=== PATIENT | male | born 1945 | race Caucasian/White ===

== ENCOUNTER 2019-05-14 17:44 | Emergency (ER) | payer MEDICARE ==
[2019-05-14 17:57] VITALS: TEMP 98.2
[2019-05-14] MEDS ORDERED: SODIUM CHLORIDE 0.9% 1,000 ML IV STA ×2 (18:24)
--- NOTE | 2019-05-14 18:46 | ED ---
Neuro HPI - General Chief Complaint: Neuro Symptoms/Deficit Stated Complaint: vision problems, headache Time Seen by Provider: 05/14/19 18:06 Source: patient, RN notes reviewed, old records reviewed Mode of arrival: ambulatory Limitations: no limitations - History of Present Illness Is the patient presenting with stroke symptoms?: No Last Known Well Date: 05/13/19 Initial Comments: Patient is a 73-year-old male presents emergency Department today with complaints of visual changes over his right lateral vision. Patient reports that he noticed yesterday when he was watching somebody walk outside he could see the person walking to dogs and conceded to dogs but could not see the person in his field of vision. Patient reports that he has had a history of TIAs in the past. Patient states he does have a mild headache at this time. Patient reports that he has had a history of diabetes and hypertension, he reports though he spitted generally working in his health and exercising frequently. Patient states that he has no other neurological deficits or complaints. He does wear glasses. - Related Data Home Medications: Home Medications Medication Instructions Recorded Confirmed Fenofibrate [Lofibra] 160 mg PO DAILY 09/08/15 09/08/15 Omeprazole [PriLOSEC] 20 mg PO AC-BRKFST 09/08/15 09/08/15 Previous Rx's Medication Instructions Recorded Aspirin 81 mg PO DAILY #30 chewable 09/09/15 Fenofibrate [Lofibra] 160 mg PO DAILY #30 tab 09/09/15 Glimepiride [Amaryl] 4 mg PO BID #60 tab 09/09/15 Omeprazole [PriLOSEC] 20 mg PO AC-BRKFST #14 09/09/15 metFORMIN HCL [metFORMIN HCL ER] 1,000 mg PO BID #60 09/09/15 Allergies/Adverse Reactions: Allergies Allergy/AdvReac Type Severity Reaction Status Date / Time No Known Allergies Allergy Verified 05/14/19 17:57 Review of Systems ROS Statement: Those systems with pertinent positive or pertinent negative responses have been documented in the HPI. ROS Other: All systems not noted in ROS Statement are negative. General Exam - General Exam Comments Initial Comments: 73-year-old male. Alert and oriented. No significant distress. Limitations: no limitations General appearance: alert, in no apparent distress Head exam: Present: atraumatic, normocephalic, normal inspection Eye exam: Present: normal appearance, PERRL, EOMI. Absent: scleral icterus, conjunctival injection, periorbital swelling ENT exam: Present: normal exam, mucous membranes moist, other (Pressure over the right eye is 16, left is 13. Patient ophthalmic exam was performed and shows no sign of retinal attachment at this time.) Neck exam: Present: normal inspection. Absent: tenderness, meningismus, lymphadenopathy Respiratory exam: Present: normal lung sounds bilaterally. Absent: respiratory distress, wheezes, rales, rhonchi, stridor Cardiovascular Exam: Present: regular rate, normal rhythm, normal heart sounds. Absent: systolic murmur, diastolic murmur, rubs, gallop, clicks GI/Abdominal exam: Present: soft, normal bowel sounds. Absent: distended, tenderness, guarding, rebound, rigid Extremities exam: Present: normal inspection, full ROM, normal capillary refill. Absent: tenderness, pedal edema, joint swelling, calf tenderness Back exam: Present: normal inspection Neurological exam: Present: alert, oriented X3, CN II-XII intact Psychiatric exam: Present: normal affect, normal mood Skin exam: Present: warm, dry, intact, normal color. Absent: rash Stroke MDM - Lab Data Result diagrams: 05/14/19 18:55 05/14/19 18:55 Lab Results 05/14/19 05/14/19 05/14/19 Range/Units 18:55 18:55 18:55 WBC 9.5 (3.8-10.6) k/uL RBC 4.92 (4.30-5.90) m/uL Hgb 14.6 (13.0-17.5) gm/dL Hct 45.5 (39.0-53.0) % MCV 92.5 (80.0-100.0) fL MCH 29.6 (25.0-35.0) pg MCHC 32.0 (31.0-37.0) g/dL RDW 14.7 (11.5-15.5) % Plt Count 280 (150-450) k/uL Neutrophils % 55 % Lymphocytes % 34 % Monocytes % 4 % Eosinophils % 5 % Basophils % 1 % Neutrophils # 5.2 (1.3-7.7) k/uL Lymphocytes # 3.2 (1.0-4.8) k/uL Monocytes # 0.4 (0-1.0) k/uL Eosinophils # 0.5 (0-0.7) k/uL Basophils # 0.1 (0-0.2) k/uL PT 10.0 (9.0-12.0) sec INR 0.9 (<1.2) APTT 24.7 (22.0-30.0) sec Sodium 144 (137-145) mmol/L Potassium 4.2 (3.5-5.1) mmol/L Chloride 109 H (98-107) mmol/L Carbon Dioxide 26 (22-30) mmol/L Anion Gap 9 mmol/L BUN 20 (9-20) mg/dL Creatinine 0.94 (0.66-1.25) mg/dL Est GFR (CKD-EPI)AfAm >90 (>60 ml/min/1.73 sqM) Est GFR (CKD-EPI)NonAf 81 (>60 ml/min/1.73 sqM) Glucose 86 (74-99) mg/dL Calcium 10.9 H (8.4-10.2) mg/dL Total Bilirubin 0.3 (0.2-1.3) mg/dL AST 19 (17-59) U/L ALT 26 (21-72) U/L Alkaline Phosphatase 55 (38-126) U/L Troponin I (0.000-0.034) ng/mL Total Protein 7.2 (6.3-8.2) g/dL Albumin 4.5 (3.5-5.0) g/dL 05/14/19 Range/Units 18:55 WBC (3.8-10.6) k/uL RBC (4.30-5.90) m/uL Hgb (13.0-17.5) gm/dL Hct (39.0-53.0) % MCV (80.0-100.0) fL MCH (25.0-35.0) pg MCHC (31.0-37.0) g/dL RDW (11.5-15.5) % Plt Count (150-450) k/uL Neutrophils % % Lymphocytes % % Monocytes % % Eosinophils % % Basophils % % Neutrophils # (1.3-7.7) k/uL Lymphocytes # (1.0-4.8) k/uL Monocytes # (0-1.0) k/uL Eosinophils # (0-0.7) k/uL Basophils # (0-0.2) k/uL PT (9.0-12.0) sec INR (<1.2) APTT (22.0-30.0) sec Sodium (137-145) mmol/L Potassium (3.5-5.1) mmol/L Chloride (98-107) mmol/L Carbon Dioxide (22-30) mmol/L Anion Gap mmol/L BUN (9-20) mg/dL Creatinine (0.66-1.25) mg/dL Est GFR (CKD-EPI)AfAm (>60 ml/min/1.73 sqM) Est GFR (CKD-EPI)NonAf (>60 ml/min/1.73 sqM) Glucose (74-99) mg/dL Calcium (8.4-10.2) mg/dL Total Bilirubin (0.2-1.3) mg/dL AST (17-59) U/L ALT (21-72) U/L Alkaline Phosphatase (38-126) U/L Troponin I <0.012 (0.000-0.034) ng/mL Total Protein (6.3-8.2) g/dL Albumin (3.5-5.0) g/dL - NIH Stroke Scale 1a. Level of Consciousness: (0) alert 1b. LOC Questions: (0) answers correctly 1c. LOC Commands: (0) performs tasks correctly 2. Best Gaze: (0) normal 3. Visual: (1) partial hemianopia 4. Facial Palsy: (0) normal symmetrical movement 5a. Motor Arm Left: (0) no drift 5b. Motor Arm Right: (0) no drift 6a. Motor Leg Left: (0) no drift 6b. Motor Leg Right: (0) no drift 7. Limb Ataxia: (0) absent 8. Sensory: (0) normal 9. Best Language: (0) no aphasia 10. Dysarthria: (0) normal 11. Extinction/Inattention: (0) no abnormality NIH Score total: 1 (patient reports an area of hazy vision on R eye at 9 oclock on lateral position. ) - Medical Decision Making 73 year old male presents with visual field disturbance for 24 hours on his right periphery. PAtient complains of mild headache, history of TIA and DM. No other neurological deficist. PAtient EKG was normal rhythm. Labs are normal. 20/20 with vision with glasses in both eyes. Denies eye pain. At this time pressures are WNL as well. CT brain angio was negative for acute stroke or hemorrhage. PAtient case discused with dr. Neri. I discussed with Dr. marina as well. Requests patient to go to his office in morning for eye exam. Discussed wiht patient and he is agreeable to this. I belive with no other neuroloical findings and discription of patient visual change that this is related to retina. Discussed retina detachement intructions. My personal opthalmic exam shows no sign of retinal detachement. PAtient is stable for DC but discussed if other deficts to return. - Radiology Data Negative CT angio of the brain, and neck. No evidence of hemodynamic stenosis. Dimminutive vertebrobasilar artery system with flow seen in posterior communication artery filling posterior cerebral arteries. There is noted enlarged sella turcica with large empty sella not changes from old CT of 2014. - EKG Data -: EKG Interpreted by Me 05/14/19 19:23 EKG performed at 1845 shows sinus rhytm. Minimal voltage criteria for LVH may be normal variant. Borderline EKG. Ventricular rate of 60 bpm. Pulse 186 most seconds. She hindu is 88 ms. QT QTc is 414 ms. Past Medical History Past Medical History: CVA/TIA, Diabetes Mellitus, GERD/Reflux, Hyperlipidemia Additional Past Medical History / Comment(s): enlarged pituitary gland History of Any Multi-Drug Resistant Organisms: None Reported Past Surgical History: Cholecystectomy Past Anesthesia/Blood Transfusion Reactions: No Reported Reaction Past Psychological History: No Psychological Hx Reported Smoking Status: Never smoker Past Alcohol Use History: None Reported Past Drug Use History: None Reported - Past Family History Father Family Medical History: Congestive Heart Failure (CHF), Diabetes Mellitus Additional Family Medical History / Comment(s): smoker/drinker CABG Mother Family Medical History: Syncope Additional Family Medical History / Comment(s): Bilat hip replacements Course Vital Signs 05/14/19 05/14/19 05/14/19 17:55 19:00 20:00 Temperature 98.2 F Pulse Rate 69 58 L 54 L Respiratory 20 18 20 Rate Blood Pressure 171/65 146/63 146/83 O2 Sat by Pulse 98 99 99 Oximetry 05/14/19 21:00 Temperature Pulse Rate 55 L Respiratory 18 Rate Blood Pressure 139/66 O2 Sat by Pulse 99 Oximetry Disposition Clinical Impression: Visual changes Disposition: HOME SELF-CARE Condition: Good Instructions (If sedation given, give patient instructions): Blurred Vision (ED) Additional Instructions: Follow-up with Dr. Ocampo tomorrow at 7:45 AM. Patient should sleep with head of the bed up. Return to the emergency department if any alarming signs or symptoms occur. Is patient prescribed a controlled substance at d/c from ED?: No Referrals: Jennifer Burciaga MD [Primary Care Provider] - 1-2 days Rosa Marina MD [STAFF PHYSICIAN] - 1-2 days Time of Disposition: 21:22
[2019-05-14 19:11] LABS: Basophils # (A) 0.1 k/uL (0-0.2); Basophils % (A) 1 %; Eosinophils # (A) 0.5 k/uL (0-0.7); Eosinophils % (A) 5 %; HCT 45.5 % (39.0-53.0); HGB 14.6 gm/dL (13.0-17.5); Lymphocytes # (A) 3.2 k/uL (1.0-4.8); Lymphocytes % (A) 34 %; MCH 29.6 pg (25.0-35.0); MCV 92.5 fL (80.0-100.0); Mean Platelet Volume 8.6; Monocytes # (A) 0.4 k/uL (0-1.0); Monocytes % (A) 4 %; Neutrophils # (A) 5.2 k/uL (1.3-7.7); Neutrophils % (A) 55 %; Platelet Count 280 k/uL (150-450); RBC 4.92 m/uL (4.30-5.90); RDW 14.7 % (11.5-15.5); WBC 9.5 k/uL (3.8-10.6)
[2019-05-14 19:20] LABS: INR 0.9 (<1.2); Partial Thromboplastin Time 24.7 sec (22.0-30.0)
[2019-05-14 19:22] LABS: ALT 26 U/L (21-72); AST 19 U/L (17-59); African American GFR (CKD) >90 (>60 ml/min/1.73 sqM); Albumin 4.5 g/dL (3.5-5.0); Alkaline Phosphatase 55 U/L (38-126); Anion Gap 9 mmol/L; Blood Urea Nitrogen 20 mg/dL (9-20); Calcium 10.9 mg/dL (8.4-10.2); Carbon Dioxide 26 mmol/L (22-30); Chloride 109 mmol/L (98-107); Glucose 86 mg/dL (74-99); Potassium 4.2 mmol/L (3.5-5.1); Sodium 144 mmol/L (137-145); Total Bilirubin 0.3 mg/dL (0.2-1.3); Total Protein 7.2 g/dL (6.3-8.2)
--- NOTE | 2019-05-14 19:26 | XR ---
EXAMINATION TYPE: XR chest 2V DATE OF EXAM: 05/14/2019 COMPARISON: 09/08/2015 HISTORY: Headache TECHNIQUE: Frontal and lateral views of the chest are obtained. FINDINGS: Heart is normal. There is calcified granulomata at the left pulmonary hilum. Lungs are hesham ar of infiltrate. There is no pleural effusion. Bony thorax is intact. There are chest leads. IMPRESSION: No active cardiopulmonary disease. Normal heart. Old granulomatous disease. No change.
--- NOTE | 2019-05-14 20:14 | CT ---
EXAMINATION TYPE: CT angio head neck DATE OF EXAM: 05/14/2019 HISTORY: Neuro deficits. COMPARISON: CT brain 09/08/2015 CT DLP: 1492.3 mGycm. Automated Exposure Control for Dose Reduction was Utilized. TECHNIQUE: CTA scan of the neck and brain is performed with IV Contrast, patient injected with 50ml mL of Isovue 370, axial images are obtained, coronal and sagittal reformatted images are reviewed. Th ree-D reconstructed images are created on an independent workstation and reviewed. FINDINGS: The noncontrast images show some cerebral cortical atrophy. There is no mass effect nor midline shift . There is no sign of intracranial hemorrhage. There is normal branching pattern of the great vessels on the aortic arch. There is bilateral arteria l flow in the subclavian arteries. There is patency of the common internal and external carotid arter ies bilaterally. There is fairly wide patency of the carotid artery bifurcations. There is no evidenc e of any significant stenosis. There is arterial flow in both vertebral arteries. There is no evidenc e of carotid or vertebral artery aneurysm or dissection. Right distal vertebral artery is diminutive. There is diminutive basilar artery. There is arterial flow in the anterior middle and posterior cerebral arteries. There is no evidence o f aneurysm or neovascularity. There is no mass effect. There is normal contrast opacification of the venous sinuses. There is no evidence of intracranial arterial stenosis. IMPRESSION: Negative CT angiogram of the brain. Negative CT angiogram of the neck. No evidence of hemodynamic sissy nosis. Diminutive vertebrobasilar artery system with significant flow seen in the posterior communica ting arteries filling the posterior cerebral arteries. There is noted enlarged sella turcica with large empty sella probably not changed compared to old CT scan of 09/08/2015.
[2019-05-14 21:27] VITALS: BP 139/66; PULSE 55; RESP 18
== END 2019-05-14 21:35 | disposition home or self-care (01) ==
LOC: EC 17:44
DX: H53.9 Unspecified visual disturbance (principal); R51 Headache; K21.9 Gastro-esophageal reflux disease without esophagitis; E78.5 Hyperlipidemia, unspecified; Z79.899 Other long term (current) drug therapy; Z86.73 Personal history of transient ischemic attack (TIA), and cerebral infarction without residual deficits
CPT/HCPCS: 99285; 96360; 96361; 36415; 93005; 80053; 84484; 85025; 85610; 85730; 71046; 70496; 70498; Q9967

== ENCOUNTER → 2019-05-20 | Outpatient (CLI) | payer MEDICARE ==
--- NOTE | 2019-05-20 10:50 | MR ---
EXAMINATION TYPE: MR angio head wo con DATE OF EXAM: 05/20/2019 COMPARISON: CTA 05/14/2019 HISTORY: Headache, vision loss TECHNIQUE: Utilizing 3-D [id number] intracranial MRA of the [place] of [place] was performed. FINDINGS: The vertebrobasilar and carotid systems are patent. There is no sizable aneurysm or vascular malform ation. Posterior cerebral arteries originate from the anterior circulation. Vertebrobasilar system i s maintained in size is seen vertebral basilar insufficiency IMPRESSION: 1. No evidence of sizable aneurysm. 2. Diminutive vertebrobasilar system can be associated with vertebrobasilar insufficiency correlate c linically.
--- NOTE | 2019-05-20 11:31 | MR ---
EXAMINATION TYPE: MR brain wo/w con DATE OF EXAM: 05/20/2019 COMPARISON: 09/30/2015 HISTORY: Headache, vision loss TECHNIQUE: Multiplanar, multisequence images of the brain and brainstem is performed without and with IV contras t, utilizing 7.5 mL intravenous Gadavist . FINDINGS: Diffusion weighted images demonstrate no evidence of a recent infarct or other diffusion ab normality. There is enlargement and expansion of the sella turcica with a heterogeneous enhancing mas s. This encroaches upon the carotid arteries bilaterally. Pituitary macroadenoma the differential santos gnosis other etiologies not excluded. Ventricular system is midline. There is moderate generalized degenerative change. Areas of patchy abn ormal signal in the periventricular region are noted suggestive of remote microvascular ischemia. The re are changes of chronic sinusitis. Midline structures demonstrate normal morphology. The craniocer vical junction appears within normal limits. Post contrast images demonstrate no abnormal enhancemen t. The dural venous sinuses appear patent. The visualized sinuses are clear and the globes are intact . IMPRESSION: 1. Large heterogeneous enhancing mass involving the sella turcica. Differential diagnosis includes pi tuitary macroadenoma. Measures 2.1 cm. 2. Degenerative and nonspecific white matter changes most typical remote microvascular ischemia. 3. Trace amount of the fluid surrounding the optic nerves is a nonspecific finding. Craniocervical ju nction maintained. However, this can occasionally be seen with early papilledema correlate clinically ..
== END | disposition home or self-care (01) ==
LOC: RADMRIMAIN 09:54
PROVIDERS: ATTEND Family Medicine
DX: G45.0 Vertebro-basilar artery syndrome (principal); I67.82 Cerebral ischemia; I67.89 Other cerebrovascular disease; R90.82 White matter disease, unspecified; H53.9 Unspecified visual disturbance
CPT/HCPCS: 70544; 70553; A9585

== ENCOUNTER → 2019-07-23 | Outpatient (CLI) | payer MEDICARE ==
[2019-07-23 16:51] LABS: Prolactin 5.9 ng/mL (2.1-17.7)
[2019-07-23 16:52] LABS: Follicle Stimulating Hormone 8.2 mIU/mL; Luteinizing Hormone 3.5 mIU/mL
[2019-07-23 21:28] LABS: ACTH 7.33 pg/mL (0.00-45.99)
[2019-07-24 05:21] LABS: ALT 36 U/L (10-49); AST 20 U/L (14-35); African American GFR (CKD) 97.9 (60.0-200.0); Albumin/Globulin Ratio 2.94 (1.60-3.17); Alkaline Phosphatase 94 U/L (41-126); BUN/Creat Ratio 26.67 Ratio (12.00-20.00); Calcium 10.7 mg/dL (8.7-10.3); Carbon Dioxide 22.4 mmol/L (21.6-31.8); Chloride 104 mmol/L (96-109); Chol/HDL Ratio 3.04; Cholesterol 137 mg/dL (0-200); Globulin 1.7 g/dL (1.6-3.3); Glucose 156 mg/dL (70-110); LDL Cholesterol,Calculated 76.4 mg/dL (0.0-131.0); Potassium 4.6 mmol/L (3.5-5.5); Sodium 143 mmol/L (135-145); Total Bilirubin 0.7 mg/dL (0.2-1.2); Total Protein 6.7 g/dL (6.2-8.2)
[2019-07-24 16:40] LABS: Growth Hormone, Human 0.3 ng/mL (<10)
== END | disposition home or self-care (01) ==
LOC: LABWHC1 10:02
PROVIDERS: ATTEND Neurological Surgery
DX: D35.2 Benign neoplasm of pituitary gland (principal)
CPT/HCPCS: 36415; 80053; 80061; 82024; 82533; 82607; 83001; 83002; 83003; 84146; 84305; 84403; 84439; 84443; 85652; 86334; 86618